=== PATIENT | female | born 1990 | race African-American/Black ===

== ENCOUNTER 2025-04-01 09:51 | Emergency (ER) | payer MEDICAID, OTHER ==
[~2025-04-01] VITALS: Ht 167.6 cm; Wt 57.0 kg
[2025-04-01 09:55] VITALS: O2SAT 98
[2025-04-01 09:58] VITALS: BP 133/87; PULSE 106; RESP 16; TEMP 36.6; O2SAT 99
[2025-04-01] MEDS ORDERED: IBUP-2029 MT (10:13)
[2025-04-01] MEDS ORDERED: PENI500T MT (10:13)
[2025-04-01] MEDS ORDERED: IBUPROFEN 600MG TABLET PO ONE (10:15)
[2025-04-01] MEDS ORDERED: HYDROCODONE/ACETAMINOPHEN 10/325MG TABLET PO ONE (10:15)
[2025-04-01] MEDS ORDERED: HYDROCODONE/ACETAMINOPHEN 10/325MG TABLET PO NR (10:25)
[2025-04-01] MEDS ORDERED: PENICILLIN V POTASSIUM 250MG TABLET PO SCH (12:00)
== END 2025-04-01 10:48 | disposition home or self-care (01) ==
LOC: ER 09:51
DX: K04.7 Periapical abscess without sinus (principal); K02.9 Dental caries, unspecified; I10 Essential (primary) hypertension
CPT/HCPCS: 99283